=== PATIENT | male | born 1960 | race Caucasian/White ===

== ENCOUNTER 2018-10-07 01:22 | Outpatient (RCR) | payer OTHER, SELFPAY | END 2018-10-07 23:59 | disposition home or self-care (01) | LOC: INF 01:22 | PROVIDERS: Visit Provider Nurse Practitioner Adult Health | DX: R69 Illness, unspecified (principal) ==

== ENCOUNTER 2018-10-07 06:47 | Outpatient (CLI) | payer OTHER, SELFPAY ==
[2018-10-07 07:22] LABS: Absolute Basophil Count 0.06 k/cumm (0.0-0.2); Absolute Eosinophil Count 0.19 k/cumm (0.0-0.7); Absolute Lymphocyte Count 0.75 k/cumm (1.2-3.4); Absolute Monocyte Count 0.58 k/cumm (0.11-0.7); Absolute Neutrophil Count 3.54 k/cumm (1.2-6.7); Basophils % 1.2; Eosinophils % 3.7; HCT 42.5 % (40.0-50.0); HGB 14.5 g/dL (13.5-17.5); Lymphocytes % 14.6; Mean Corp. HGB Concentration 34.1 g/dL (32.0-36.0); Mean Corpuscular Hemoglobin 31.5 pg (27.0-33.0); Mean Corpuscular Volume 92.4 fL (80-95); Mean Platelet Volume 9.4 fL (8.0-11.0); Monocytes % 11.3; Neutrophils % 69.2; Platelet Count 205 x1000/uL (130-400); RBC Distribution Width 12.2 % (11.8-14.1); White Blood Cell Count 5.12 k/cumm (4.4-10.8)
[2018-10-07 07:33] LABS: ALT 16 U/L (12-78); AST 16 U/L (15-37); Albumin 3.4 g/dL (3.4-5.0); Alkaline Phosphatase 67 U/L (46-116); Anion Gap 7.2 mmol/L (3-11); BUN 15 mg/dL (7-18); Bilirubin, Total 0.3 mg/dL (0.2-1.0); CO2 29.8 mmol/L (21.0-32.0); CREATININE 0.84 mg/dL (0.70-1.30); Calcium 9.2 mg/dL (8.5-10.1); Chloride 102 mmol/L (98-107); Glucose 100 mg/dL (70-100); Potassium 4.1 mmol/L (3.5-5.1); Sodium 139 mmol/L (136-145); Total Protein 7.3 g/dL (6.4-8.2)
== END 2018-10-07 07:07 ==
PROVIDERS: PCP Neuromusculoskeletal Medicine & OMM; Visit Provider Nurse Practitioner Adult Health
DX: C77.0 Secondary and unspecified malignant neoplasm of lymph nodes of head, face and neck (principal)
CPT/HCPCS: 36415; 80053; 85025

== ENCOUNTER 2018-11-01 00:54 | Outpatient (RCR) | payer OTHER, SELFPAY ==
[2018-10-11] MEDS: Normal Saline Flush 10 ML SYR IVP (10:36)
[2018-10-11] MEDS: Heparin 500 UNITS/5 ML SYRINGE IV (10:37)
[2018-10-11 10:44] LABS: Abs Immature Grans 0.01 k/cumm (0.0-0.09); Absolute Basophil Count 0.03 k/cumm (0.0-0.2); Absolute Eosinophil Count 0.08 k/cumm (0.0-0.7); Absolute Lymphocyte Count 1.24 k/cumm (1.2-3.4); Absolute Monocyte Count 1.01 k/cumm (0.11-0.7); Absolute Neutrophil Count 4.63 k/cumm (1.2-6.7); Basophils % 0.4; Eosinophils % 1.1; HGB 14.4 g/dL (13.5-17.5); Immature Grans % 0.1; Lymphocytes % 17.7; Mean Corp. HGB Concentration 34.3 g/dL (32.0-36.0); Mean Corpuscular Hemoglobin 31.3 pg (27.0-33.0); Mean Corpuscular Volume 91.3 fL (80-95); Mean Platelet Volume 9.8 fL (8.0-11.0); Monocytes % 14.4; Neutrophils % 66.3; Platelet Count 252 x1000/uL (130-400); RBC Distribution Width 11.8 % (11.8-14.1)
[2018-10-11 10:52] LABS: ALT 16 U/L (12-78); AST 12 U/L (15-37); Albumin 3.6 g/dL (3.4-5.0); Alkaline Phosphatase 67 U/L (46-116); Anion Gap 6.1 mmol/L (3-11); BUN 22 mg/dL (7-18); Bilirubin, Total 0.3 mg/dL (0.2-1.0); CO2 31.9 mmol/L (21.0-32.0); CREATININE 0.93 mg/dL (0.70-1.30); Calcium 9.1 mg/dL (8.5-10.1); Chloride 100 mmol/L (98-107); Glucose 100 mg/dL (70-100); Magnesium 1.9 mg/dL (1.8-2.4); Potassium 3.9 mmol/L (3.5-5.1); Sodium 138 mmol/L (136-145); Total Protein 7.6 g/dL (6.4-8.2)
[2018-10-18] MEDS: Heparin 500 UNITS/5 ML SYRINGE IV (10:54)
[2018-10-18] MEDS: Normal Saline Flush 10 ML SYR IVP (10:54)
[2018-10-18 10:58] LABS: Abs Immature Grans 0.01 k/cumm (0.0-0.09); Absolute Basophil Count 0.01 k/cumm (0.0-0.2); Absolute Eosinophil Count 0.05 k/cumm (0.0-0.7); Absolute Lymphocyte Count 0.85 k/cumm (1.2-3.4); Absolute Monocyte Count 0.65 k/cumm (0.11-0.7); Absolute Neutrophil Count 5.19 k/cumm (1.2-6.7); Basophils % 0.1; Eosinophils % 0.7; HGB 13.7 g/dL (13.5-17.5); Immature Grans % 0.1; Lymphocytes % 12.6; Mean Corp. HGB Concentration 34.3 g/dL (32.0-36.0); Mean Corpuscular Hemoglobin 31.6 pg (27.0-33.0); Mean Corpuscular Volume 92.2 fL (80-95); Mean Platelet Volume 9.8 fL (8.0-11.0); Monocytes % 9.6; Neutrophils % 76.9; Platelet Count 227 x1000/uL (130-400); RBC 4.34 m/cumm (4.50-6.00); RBC Distribution Width 11.9 % (11.8-14.1); White Blood Cell Count 6.76 k/cumm (4.4-10.8)
[2018-10-18 11:12] LABS: ALT 32 U/L (12-78); AST 16 U/L (15-37); Albumin 3.4 g/dL (3.4-5.0); Alkaline Phosphatase 70 U/L (46-116); Anion Gap 8.7 mmol/L (3-11); BUN 20 mg/dL (7-18); Bilirubin, Total 0.2 mg/dL (0.2-1.0); CO2 30.3 mmol/L (21.0-32.0); CREATININE 0.89 mg/dL (0.70-1.30); Calcium 9.3 mg/dL (8.5-10.1); Chloride 101 mmol/L (98-107); Glucose 117 mg/dL (70-100); Potassium 3.6 mmol/L (3.5-5.1); Sodium 140 mmol/L (136-145); Total Protein 7.4 g/dL (6.4-8.2)
[2018-10-21 11:27] LABS: Magnesium 1.7 mg/dL (1.8-2.4)
[2018-10-25] MEDS: Heparin 500 UNITS/5 ML SYRINGE IV (12:43)
[2018-10-25] MEDS: Normal Saline Flush 10 ML SYR IVP (12:43)
[2018-10-25 13:00] LABS: Absolute Basophil Count 0.01 k/cumm (0.0-0.2); Absolute Eosinophil Count 0.03 k/cumm (0.0-0.7); Absolute Lymphocyte Count 0.55 k/cumm (1.2-3.4); Absolute Monocyte Count 0.67 k/cumm (0.11-0.7); Absolute Neutrophil Count 3.58 k/cumm (1.2-6.7); Basophils % 0.2; Eosinophils % 0.6; HCT 36.4 % (40.0-50.0); HGB 12.6 g/dL (13.5-17.5); Lymphocytes % 11.4; Mean Corp. HGB Concentration 34.6 g/dL (32.0-36.0); Mean Corpuscular Hemoglobin 31.8 pg (27.0-33.0); Mean Corpuscular Volume 91.9 fL (80-95); Mean Platelet Volume 9.3 fL (8.0-11.0); Monocytes % 13.8; Platelet Count 241 x1000/uL (130-400); RBC 3.96 m/cumm (4.50-6.00); RBC Distribution Width 11.9 % (11.8-14.1); White Blood Cell Count 4.84 k/cumm (4.4-10.8)
[2018-10-25 13:09] LABS: ALT 25 U/L (12-78); AST 18 U/L (15-37); Albumin 3.2 g/dL (3.4-5.0); Alkaline Phosphatase 70 U/L (46-116); Anion Gap 6.9 mmol/L (3-11); BUN 23 mg/dL (7-18); Bilirubin, Total 0.3 mg/dL (0.2-1.0); CO2 32.1 mmol/L (21.0-32.0); CREATININE 0.85 mg/dL (0.70-1.30); Calcium 9.4 mg/dL (8.5-10.1); Chloride 100 mmol/L (98-107); Glucose 92 mg/dL (70-100); Magnesium 1.9 mg/dL (1.8-2.4); Sodium 139 mmol/L (136-145); Total Protein 7.4 g/dL (6.4-8.2)
[2018-11-01 12:31] LABS: Abs Immature Grans 0.01 k/cumm (0.0-0.09); Absolute Basophil Count 0.02 k/cumm (0.0-0.2); Absolute Eosinophil Count 0.04 k/cumm (0.0-0.7); Absolute Lymphocyte Count 0.51 k/cumm (1.2-3.4); Absolute Monocyte Count 0.47 k/cumm (0.11-0.7); Basophils % 0.5; Eosinophils % 0.9; HCT 34.6 % (40.0-50.0); HGB 12.1 g/dL (13.5-17.5); Immature Grans % 0.2; Lymphocytes % 11.7; Mean Corpuscular Hemoglobin 31.9 pg (27.0-33.0); Mean Corpuscular Volume 91.3 fL (80-95); Mean Platelet Volume 9.3 fL (8.0-11.0); Monocytes % 10.8; Neutrophils % 75.9; Platelet Count 212 x1000/uL (130-400); RBC 3.79 m/cumm (4.50-6.00); RBC Distribution Width 12.2 % (11.8-14.1); White Blood Cell Count 4.35 k/cumm (4.4-10.8)
[2018-11-01 12:50] LABS: ALT 29 U/L (12-78); AST 15 U/L (15-37); Albumin 3.2 g/dL (3.4-5.0); Alkaline Phosphatase 79 U/L (46-116); Anion Gap 9.6 mmol/L (3-11); BUN 28 mg/dL (7-18); Bilirubin, Total 0.2 mg/dL (0.2-1.0); CO2 29.4 mmol/L (21.0-32.0); CREATININE 0.91 mg/dL (0.70-1.30); Calcium 9.1 mg/dL (8.5-10.1); Chloride 99 mmol/L (98-107); Glucose 89 mg/dL (70-100); Potassium 4.5 mmol/L (3.5-5.1); Sodium 138 mmol/L (136-145); Total Protein 7.4 g/dL (6.4-8.2)
[2018-11-01] MEDS: Normal Saline Flush 10 ML SYR IVP (13:18)
[2018-11-04 09:24] LABS: Magnesium 1.7 mg/dL (1.8-2.4)
== END 2018-11-07 23:59 | disposition home or self-care (01) ==
LOC: INF 00:54
PROVIDERS: PCP Neuromusculoskeletal Medicine & OMM; Visit Provider Nurse Practitioner Adult Health
DX: C77.0 Secondary and unspecified malignant neoplasm of lymph nodes of head, face and neck (principal); Z45.2 Encounter for adjustment and management of vascular access device
CPT/HCPCS: 36591; 80053; 83735; 85025

== ENCOUNTER 2018-11-18 11:09 | Outpatient (CLI) | payer OTHER, SELFPAY ==
[2018-11-18 11:27] LABS: Abs Immature Grans 0.01 k/cumm (0.0-0.09); Absolute Basophil Count 0.01 k/cumm (0.0-0.2); Absolute Eosinophil Count 0.03 k/cumm (0.0-0.7); Absolute Lymphocyte Count 0.22 k/cumm (1.2-3.4); Absolute Monocyte Count 0.28 k/cumm (0.11-0.7); Absolute Neutrophil Count 2.35 k/cumm (1.2-6.7); Basophils % 0.3; HCT 29.6 % (40.0-50.0); HGB 10.1 g/dL (13.5-17.5); Immature Grans % 0.3; Lymphocytes % 7.6; Mean Corp. HGB Concentration 34.1 g/dL (32.0-36.0); Mean Corpuscular Hemoglobin 31.5 pg (27.0-33.0); Mean Corpuscular Volume 92.2 fL (80-95); Monocytes % 9.7; Neutrophils % 81.1; Platelet Count 149 x1000/uL (130-400); RBC 3.21 m/cumm (4.50-6.00); RBC Distribution Width 12.6 % (11.8-14.1)
[2018-11-18 11:38] LABS: Bilirubin Negative (Negative); Blood Negative (Negative); Clarity Clear; Glucose Negative (Negative); Ketones Negative (Negative); Leukocyte Esterase Negative (Negative); Nitrite Negative (Negative); Specific Gravity 1.025 (1.005-1.025); Urobilinogen 0.2 EU/dL (Up TO 0.2)
[2018-11-18 11:39] LABS: ALT 20 U/L (12-78); AST 12 U/L (15-37); Albumin 2.9 g/dL (3.4-5.0); Alkaline Phosphatase 77 U/L (46-116); Anion Gap 7.4 mmol/L (3-11); BUN 24 mg/dL (7-18); Bilirubin, Total 0.2 mg/dL (0.2-1.0); CO2 29.6 mmol/L (21.0-32.0); CREATININE 0.99 mg/dL (0.70-1.30); Calcium 9.1 mg/dL (8.5-10.1); Chloride 100 mmol/L (98-107); Glucose 116 mg/dL (70-100); Magnesium 1.4 mg/dL (1.8-2.4); Potassium 4.1 mmol/L (3.5-5.1); Sodium 137 mmol/L (136-145); Total Protein 7.3 g/dL (6.4-8.2)
[2018-11-18 11:49] LABS: Bacteria Rare HPF (Negative); C & S Indicated? No; Casts 0-2 Hyaline LPF (Negative); Crystals Negative HPF (Negative); Epithelial Cells Rare HPF (Negative); Mucus Moderate (Negative); RBC 0-2 (0-2); WBC 0-2 HPF (0-5)
[2018-11-18 11:50] LABS: Other Cells Negative (Negative)
== END 2018-11-18 11:29 ==
PROVIDERS: PCP Neuromusculoskeletal Medicine & OMM; Visit Provider Nurse Practitioner Adult Health
DX: C77.0 Secondary and unspecified malignant neoplasm of lymph nodes of head, face and neck (principal)
CPT/HCPCS: 80053; 81003; 81015; 83735; 85025

== ENCOUNTER 2018-11-18 12:12 | Observation (INO) | payer OTHER, SELFPAY ==
[2018-11-18] VITALS (8 sets, daily range): BP systolic 106–142; BP diastolic 63–83; PULSE 99–120; RESP 16–20; TEMP 36.7–37.2; O2SAT 94–98
--- NOTE | 2018-11-18 12:35 | W.ED.GENAD ---
Discharge Plan Disposition Patient Disposition: [facility] INPATIENT Condition: Stable Discharge Details Chief Complaint: Nk/Back Pain Clinical Impression: Pulmonary embolism on right Reason For Visit: ACUTE PE Admit Date/Time: 11/18/18 15:33 Admit Provider: Fernando Zazueta Attending Provider: Fernando Zazueta Primary Care Provider: Troy Castorena ED Provider: Donta Whaley Discharge Data Discharge Date/Time-TO BE ENTERED AT DEPARTURE: 11/18/18 16:34 Medical Decision Making 58-year-old male presents on referral from [facility] where he is undergoing radiation and chemotherapy for head and neck cancer. He states that last night he developed fairly abrupt onset of right flank pain that is worse with coughing, has been constant and severe, minimally improved with home oxycodone. At the cancer center he was given 1 L of fluid and 1.25 g of magnesium. Labs were obtained. Patient's labs from 10:00 this morning show white count of 2.9, hematocrit 29, platelets 149, chemistries with unremarkable electrolytes, BUN 24, creatinine 0.9. AST and ALT unremarkable. Urinalysis shows specific gravity of 1.025, negative for blood negative nitrites, negative leuk esterase. He is high risk for pneumonia as well as PE given his history of carcinoma, consideration also of ureteral colic. Patient referred for CT scan of the chest and abdomen/pelvis. He has a right lower lobe pulmonary embolism. Screening EKG obtained which reveals a sinus tachycardia with narrow QRS and no ST segment elevation. Case discussed with Dr Zazueta and patient to be admitted. Lab Data Lab results reviewed: Yes I reviewed the patient's lab results. ECG Data Attestation: I personally reviewed and interpreted this ECG (s) as follows: Interpretation: sinus tachycardia with narrow QRS and no ST segment elevation HPI General Mode of arrival: ambulatory. Date/Time Provider Initiated Documentation: 11/18/18 12:14. Limitations to Documentation: no limitations. Information obtained by: patient. History of Present Illness described as moderate, Quality is described as dull and constant, and is localized to the chest. Patient flank. Patient started experiencing this hour(s) and it has been constant. Rest improves symptom(s), Other factors that worsen symptoms (cough) . Patient notes no other symptoms.. Related Data Home Medications Medication Instructions Recorded Confirmed lorazepam 1 mg PO PRN PRN 11/18/18 11/18/18 oxycodone 5 ml PO PRN PRN 11/18/18 11/18/18 Allergies Allergy/AdvReac Type Severity Reaction Status Date / Time Penicillins Allergy Unverified 11/18/18 12:25 General Stated Complaint: Nk/Back Pain AMMON: 2 Review of Systems Review of Systems Ongoing dry mouth due to radiation, no fever, no rash. 8 systems reviewed and otherwise neg PFSH Medical History History of gastrostomy tube placement (Acute) Tobacco abuse (Acute) Tongue cancer (Acute) Social History Smoking and Tabacco status: Former Tobacco Use Exam Narrative Exam Narrative: GEN: awake, alert, oriented 3. Pleasant, well groomed, interactive. HEAD: Normocephalic, atraumatic ENT: Mucous membranes dry, External ear exam unremarkable EYES: PERRL, EOMI NECK: Full ROM, no PADMINI, no menigismus CHEST/RESP: Left upper chest wall port with access in place right infero-posterior thoracic tenderness, clear to auscultation bilateral, no wheeze/rhonchi/rales. No rash CARDIOVASCULAR: regular, tachycardic, no murmur, rub herson. 2+ Rad pulse bilateral ABDOMEN: Soft, nontender, no mass. +Bowel sounds. Left lower abdomen G-tube, nontender, clean dry and intact EXT: Full ROM, no edema, no rash Neuro: Grossly normal neurologic exam, conversant, interactive. Psych: Speech fluent, thoughts congruent, affect normal Course Vital Signs Temperature 37.1 C 11/18/18 12:22 Pulse 120 H 11/18/18 12:22 Respiratory Rate 20 11/18/18 12:22 Blood Pressure 110/83 11/18/18 12:22 Pulse Oximetry 95 11/18/18 12:22 Temperature 37.1 C 11/18/18 12:22 Temperature Source Temporal Artery Scan 11/18/18 12:22 Pulse 120 H 11/18/18 12:22 Respiratory Rate 20 11/18/18 12:22 Respiratory Effort Non-Labored 11/18/18 12:22 Blood Pressure 110/83 11/18/18 12:22 Pulse Oximetry 95 11/18/18 12:22 Oxygen Delivery Method Room Air 11/18/18 12:22 Oxygen Flow Rate 0 11/18/18 12:22 Pain Level 10 11/18/18 12:22
--- NOTE | 2018-11-18 12:39 | DI.CT_ITS ---
SYMPTOMS/DIAGNOSIS: RIGHT FLANK/POSTERIOR THORACIC PAIN, COUGH, H/O CA PE CT: CT angiography was performed with multi slice acquisition and multi planar and 3D reconstruction. There is a filling defect seen in branches of the pulmonary artery to the right lower lobe consistent with pulmonary embolus. The thoracic aorta is of normal caliber. No aneurysmal dilatation or dissection is seen. The heart size is within normal limits. No evidence of right ventricular dysfunction is seen. No significant pericardial effusion is seen. No significant thoracic adenopathy is identified. The lungs show dependent infiltrates bilaterally. These may represent atelectasis. Pneumonia cannot be excluded. Moderate emphysematous changes are present in the lungs. The tracheobronchial tree is unremarkable. There is an indwelling central venous catheter in position. No pulmonary nodules are appreciated. Degenerative changes are seen in the spine. IMPRESSION: Pulmonary emboli involving the right lower lobe. The findings were discussed with the Emergency Department on the date of the examination.
--- NOTE | 2018-11-18 12:39 | ED.GENADUL_ITS ---
Discharge Plan Disposition Patient Disposition: [facility] INPATIENT Condition: Stable Discharge Details Chief Complaint: Nk/Back Pain Clinical Impression: Pulmonary embolism on right Reason For Visit: ACUTE PE Admit Date/Time: 11/18/18 15:33 Admit Provider: Fernando Zazueta Attending Provider: Fernando Zazueta Primary Care Provider: Troy Castorena ED Provider: Donta Whaley Discharge Data Discharge Date/Time-TO BE ENTERED AT DEPARTURE: 11/18/18 16:34 Medical Decision Making 58-year-old male presents on referral from [facility] where he is undergoing radiation and chemotherapy for head and neck cancer. He states that last night he developed fairly abrupt onset of right flank pain that is worse with coughing, has been constant and severe, minimally improved with home oxycodone. At the cancer center he was given 1 L of fluid and 1.25 g of magnesium. Labs were obtained. Patient's labs from 10:00 this morning show white count of 2.9, hematocrit 29, platelets 149, chemistries with unremarkable electrolytes, BUN 24, creatinine 0.9. AST and ALT unremarkable. Urinalysis shows specific gravity of 1.025, negative for blood negative nitrites, negative leuk esterase. He is high risk for pneumonia as well as PE given his history of carcinoma, consideration also of ureteral colic. Patient referred for CT scan of the chest and abdomen/pelvis. He has a right lower lobe pulmonary embolism. Screening EKG obtained which reveals a sinus tachycardia with narrow QRS and no ST segment elevation. Case discussed with Dr Zazueta and patient to be admitted. Lab Data Lab results reviewed: Yes I reviewed the patient's lab results. ECG Data Attestation: I personally reviewed and interpreted this ECG (s) as follows: Interpretation: sinus tachycardia with narrow QRS and no ST segment elevation HPI General Mode of arrival: ambulatory . Date/Time Provider Initiated Documentation: 11/18/18 12:14 . Limitations to Documentation: no limitations . Information obtained by: patient . History of Present Illness described as moderate, Quality is described as dull and constant, and is localized to the chest. Patient flank. Patient started experiencing this hour(s) and it has been constant. Rest improves symptom(s), Other factors that worsen symptoms (cough) . Patient notes no other symptoms.. Related Data Home Medications Medication Instructions Recorded Confirmed lorazepam 1 mg PO PRN PRN 11/18/18 11/18/18 oxycodone 5 ml PO PRN PRN 11/18/18 11/18/18 Allergies Allergy/AdvReac Type Severity Reaction Status Date / Time Penicillins Allergy Unverified 11/18/18 12:25 General Stated Complaint: Nk/Back Pain AMMON: 2 Review of Systems Review of Systems Ongoing dry mouth due to radiation, no fever, no rash. 8 systems reviewed and otherwise neg PFSH Medical History History of gastrostomy tube placement (Acute) Tobacco abuse (Acute) Tongue cancer (Acute) Social History Smoking and Tabacco status: Former Tobacco Use Exam Narrative Exam Narrative: GEN: awake, alert, oriented 3. Pleasant, well groomed, interactive. HEAD: Normocephalic, atraumatic ENT: Mucous membranes dry, External ear exam unremarkable EYES: PERRL, EOMI NECK: Full ROM, no PADMINI, no menigismus CHEST/RESP: Left upper chest wall port with access in place right infero- posterior thoracic tenderness, clear to auscultation bilateral, no wheeze/rhonchi/rales. No rash CARDIOVASCULAR: regular, tachycardic, no murmur, rub herson. 2+ Rad pulse bilateral ABDOMEN: Soft, nontender, no mass. +Bowel sounds. Left lower abdomen G-tube, nontender, clean dry and intact EXT: Full ROM, no edema, no rash Neuro: Grossly normal neurologic exam, conversant, interactive. Psych: Speech fluent, thoughts congruent, affect normal Course Vital Signs Temperature 37.1 C 11/18/18 12:22 Pulse 120 H 11/18/18 12:22 Respiratory Rate 20 11/18/18 12:22 Blood Pressure 110/83 11/18/18 12:22 Pulse Oximetry 95 11/18/18 12:22 Temperature 37.1 C 11/18/18 12:22 Temperature Source Temporal Artery Scan 11/18/18 12:22 Pulse 120 H 11/18/18 12:22 Respiratory Rate 20 11/18/18 12:22 Respiratory Effort Non-Labored 11/18/18 12:22 Blood Pressure 110/83 11/18/18 12:22 Pulse Oximetry 95 11/18/18 12:22 Oxygen Delivery Method Room Air 11/18/18 12:22 Oxygen Flow Rate 0 11/18/18 12:22 Pain Level 10 11/18/18 12:22
[2018-11-18] MEDS: HYDROmorphone 2 MG/ML VIAL 1 MG IVP (12:56)
--- NOTE | 2018-11-18 12:57 | DI.CT_ITS ---
SYMPTOMS/DIAGNOSIS: RIGHT FLANK PAIN, RIGHT UPPER QUADRANT CT SCAN OF THE ABDOMEN AND PELVIS: CT scan of the abdomen and pelvis was performed according to the renal colic protocol. There are no priors for comparison. There is no evidence of nephrolithiasis, ureterolithiasis or hydronephrosis. There are bilateral hypodense lesions seen arising from the renal cortices, likely reflecting cysts. They are indeterminate on this noncontrast examination. There is a gastrostomy tube in place. The unenhanced visualized portions of the liver, spleen, pancreas, gallbladder, bile ducts and adrenal glands are unremarkable. The abdominal aorta is of normal caliber. No significant abdominal or pelvic adenopathy, ascites or pneumoperitoneum is present. There is diverticulosis seen in the sigmoid colon, but no evidence of acute diverticulitis. The bowel shows no evidence of obstruction or inflammation. No findings to suggest an acute appendicitis are present. Multilevel degenerative changes are present throughout the lower thoracic and lumbar spine. IMPRESSION: 1. No evidence of nephrolithiasis or hydronephrosis. 2. No evidence of an acute abdomen. 3. Incidental findings in the abdomen and pelvis as described above. These findings were discussed with the Emergency Department on the date of the examination.
[2018-11-18] MEDS: Omnipaque 350 MG/ML 100 ML BTL IV (14:58)
--- NOTE | 2018-11-18 16:20 | W.PM.HP.N ---
Date of service: 11/18/18 Time of Service: 16:29 Assessment and Plan (1) Pulmonary embolism: Start date: 11/18/18 Start time: 16:22 Current visit: Yes Status: Acute Pulmonary embolism evidenced by CTA in Right lower lobe. Started enoxaprin dosing 1.5 mg/kg subcu q24 hours 146.2 mg. Morphine for pain management 2 mg every 3 hours. (2) G tube feedings: Start date: 11/18/18 Start time: 16:23 Current visit: Yes Status: Acute Swallowing difficulty due to radiation to neck. Can not swallow anything but thin liquids. 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 (5) Difficulty swallowing: Start date: 11/18/18 Start time: 16:28 Current visit: Yes Status: Acute receiving chemo and radiation to neck and head. Unable to swallow anything but thin liquids at this time. History of Present Illness Chief Complaint: Pulmonary Emoblism Narrative: Mr. Hatfield is a 58 y.o male with a history of Radiation to his head and Neck for cancer. He had a three days history of profuse posterior thorax pain that would bring tears to his eyes. He endorses coughing last night that has been constant and severe. Mr. Hatfield has a history of tobacco use, and is currently receiving Chemo and Radiation for neck cancer when he went to the cancer center this am for his last chemo treatment and told them his symptoms. The cancer center gave him a liter of fluid and 1.25 g of magnesium. He was sent to [facility] emergency department for further evaluation. In the emergency department he had a CTA that showed a right lower lobe pulmonary embolism. We have been asked to admit this patient for further evaluation and observation. He will be started on enoxaparin 1.5 mg /kg every 24 hours. He is not hypotensive or tachycardic. Denies SOB. He does c/o posterior thorax pain with deep inspiration, he usually takes oxycodone at home, Morphine 2 mg is ordered for pain. Ultrasound to r/o DVT and observation over night. Review of Systems Review of Systems All systems reviewed & are unremarkable except as noted in HPI and below Constitutional Reports system reviewed and no additional complaints, except as docu Eyes Reports system reviewed and no additional complaints, except as docu ENT Reports throat swelling Comments: dysphagia Cardiovascular Reports system reviewed and no additional complaints, except as docu Respiratory Reports system reviewed and no additional complaints, except as docu Gastrointestinal Reports system reviewed and no additional complaints, except as docu Genitourinary Reports system reviewed and no additional complaints, except as docu Musculoskeletal Reports system reviewed and no additional complaints, except as docu Neurologic Reports system reviewed and no additional complaints, except as docu Endocrine Reports system reviewed and no additional complaints, except as docu Hematologic/Lymphatic Reports as per HPI Allergic/Immunologic Reports throat swelling PFSH Medical History History of gastrostomy tube placement (Acute) Tobacco abuse (Acute) Tongue cancer (Acute) Social History Smoking and Tabacco status: Former Tobacco Use Meds Home Medications Medication Instructions Recorded Confirmed Type lorazepam 1 mg PO PRN PRN 11/18/18 11/18/18 History oxycodone 5 ml PO PRN PRN 11/18/18 11/18/18 History Allergies Allergy/AdvReac Type Severity Reaction Status Date / Time Penicillins Allergy Unverified 11/18/18 12:25 Exam Narrative Exam Narrative: Pleasant man sitting up in a stretcher, calm Const General: cooperative and healthy appearing [facility] Head: normal to inspection Eyes General: appearance normal, both eyes and all related structures Neck Neck: no lymphadenopathy Other: erythemic from radiation Chest Chest: normal inspection of the chest Resp Effort & Inspection: normal respiratory effort Auscultation: clear to auscultation bilaterally Cardio Jugular venous pressure: no JVD Rhythm: regular rhythm Heart Sounds: S1 normal and S2 normal GI Inspection: normal to inspection Other: G tube placed Skin General skin exam: no rashes or lesions noted Neuro General: alert, awake and oriented x3 Extrem General: normal to inspection and full ROM Results Last Vital Signs Temp 37.2 C 11/18/18 15:06 Pulse 112 H 11/18/18 15:06 Resp 18 11/18/18 15:06 BP 111/76 11/18/18 15:06 Pulse Ox 94 L 11/18/18 15:06
--- NOTE | 2018-11-18 16:50 | DI.US_ITS ---
SYMPTOM/DIAGNOSIS: PULMONARY EMBOLISM BILATERAL LOWER EXTREMITY ULTRASOUND: The deep veins of the lower extremities show normal compression, augmentation and color flow. No evidence of a deep venous thrombus is seen in either lower extremity. The saphenofemoral junctions are patent without thrombus bilaterally. The soft tissues are unremarkable. IMPRESSION: No evidence of a deep venous thrombus in either lower extremity.
--- NOTE | 2018-11-18 17:14 | DI.VRAD_ITS ---
EXAM: US Duplex Bilateral Lower Extremity Veins EXAM DATE/TIME: 11/18/2018 4:20 PM CLINICAL HISTORY: 58 years old, male; Signs and symptoms; Other: Pe; ? Dvt TECHNIQUE: Real-time duplex ultrasound of the Bilateral Lower Extremities with 2-D waite scale, color Doppler flow and spectral waveform analysis. Complete exam focused on the bilateral lower extremity veins. COMPARISON: No relevant prior studies available. FINDINGS: Right deep veins: Unremarkable. The common femoral, femoral, proximal profunda femoral and popliteal veins are patent without thrombus. Normal Doppler waveforms. Normal compressibility and/or augmentation response. Right superficial veins: Saphenofemoral junction is patent without thrombus. Left deep veins: Unremarkable. The common femoral, femoral, proximal profunda femoral and popliteal veins are patent without thrombus. Normal Doppler waveforms. Normal compressibility and/or augmentation response. Left superficial veins: Saphenofemoral junction is patent without thrombus. Soft tissues: Unremarkable. IMPRESSION: No acute findings. No evidence of deep vein thrombosis. Dictated and Authenticated by: Michelle Baron MD. Ordering:JESSICA Schaffer MD
[2018-11-18] MEDS: Normal Saline Flush 10 ML SYR IVP (18:57)
[2018-11-18] MEDS: Ondansetron 4 MG/2 ML VIAL IVP (20:33)
[2018-11-18] MEDS: Normal Saline Flush 10 ML SYR 20 ML IVP (20:34)
[2018-11-19 03:48] VITALS: BP 102/73; PULSE 94; RESP 16; TEMP 37.1; O2SAT 96
--- NOTE | 2018-11-19 04:14 | NUR.NOTE ---
evening shift nurse tried to get pt's tube feeding to flow via gravity but it would not would flow. pt refused to use syringe or pump. coby Wade notified.
[2018-11-19 06:59] VITALS: PULSE 93
[2018-11-19 07:11] LABS: HCT 27.2 % (40.0-50.0); HGB 9.1 g/dL (13.5-17.5); Mean Corp. HGB Concentration 33.5 g/dL (32.0-36.0); Mean Corpuscular Volume 92.5 fL (80-95); Mean Platelet Volume 9.2 fL (8.0-11.0); Platelet Count 136 x1000/uL (130-400); RBC 2.94 m/cumm (4.50-6.00); RBC Distribution Width 12.7 % (11.8-14.1); White Blood Cell Count 2.27 k/cumm (4.4-10.8)
[2018-11-19 07:25] VITALS: BP 108/81; PULSE 97; RESP 18; TEMP 36.6; O2SAT 96
[2018-11-19 07:26] LABS: Anion Gap 7.6 mmol/L (3-11); BUN 18 mg/dL (7-18); CO2 29.4 mmol/L (21.0-32.0); CREATININE 0.92 mg/dL (0.70-1.30); Chloride 101 mmol/L (98-107); Glucose 105 mg/dL (70-100); Magnesium 1.5 mg/dL (1.8-2.4); Potassium 4.2 mmol/L (3.5-5.1); Sodium 138 mmol/L (136-145)
[2018-11-19 07:27] LABS: Prothrombin Time 10.1 sec (9.3-11.0)
[2018-11-19 09:30] VITALS: O2SAT 96
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
[2018-11-19] MEDS: MAGNESIUM SULFATE 2 GM/50 ML BAG IVPB (10:38)
[2018-11-19] MEDS: Normal Saline Flush 10 ML SYR 20 ML IVP (10:40)
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
[2018-11-19 11:25] VITALS: BP 102/78; PULSE 102; RESP 19; TEMP 37; O2SAT 96
--- NOTE | 2018-11-19 12:04 | DSE_ITS ---
Date of service: 11/19/18 Time of Service: 12:02 DS: Diagnosis Discharge Diagnosis (1) Pulmonary embolism: Status: Acute (2) G tube feedings: Status: Acute (3) DVT prophylaxis: Status: Acute (4) Squamous cell cancer of buccal mucosa: Status: Acute (5) Difficulty swallowing: Status: Acute Discharge Plan Disposition Condition: Stable Discharge Details Reason For Visit: ACUTE PE Admit Date/Time: 11/18/18 15:33 Admit Provider: Fernando Zazueta Attending Provider: Fernando Zazueta Primary Care Provider: Troy Castorena [facility] Hospital Course: Mr. Hatfield is a pleasant 58 year old man with a history of tobacco use and head and neck cancer for which he is currently undergoing chemotherapy and radiation. He presented to the [facility] for his chemo treatment yesterday and reported significant right flank pain. He was given IV fluids and magnesium and sent to the ED for further evaluation. He did not receive his chemotherapy or radiation yesterday. In the ED, he had a CTA that showed a right lower lobe pulmonary embolism. He had bilateral lower extremity ultrasound which did not show evidence of a DVT in either extremity. He was admitted to the [facility] floor for further observation and management. He was started on therapeutic Lovenox. He remained hemodynamically stable, he is not hypotensive or tachycardic. He is eager for discharge. He is not longer experiencing the right-sided pain that prompted his visit to the ED. He denies shortness of breath, coughing, wheezing, chest pain/pressure, palpitations. His blood counts are down today, however, he is 8 days post chemotherapy. He also received IV fluids yesterday. He is discharged home today with close follow up. Nursing is working with Mr. Hatfield and his on administering Lovenox at home. He require anticoagulation for 3-6 months. He will be discharged home with a 10 day supply of Lovenox and follow up with his PCP and the [facility]. He will be seen at the [facility] this afternoon. He will have labs drawn in 2 days to reassess his blood counts. He will follow up with his PCP as scheduled. Home Meds and New Rx's Prescriptions: New omeprazole 20 mg Capsule,Delayed Release(Dr/Ec) 20 mg PO DAILY@0730 30 Days Qty: 30 RF: 0 enoxaparin [Lovenox] 100 mg/mL syringe 100 mg SC Q12H Qty: 20 RF: 0 Continued oxycodone 5 mg/5 mL Solution 5 ml PO PRN PRNRF: 0 lorazepam 1 mg Tablet 1 mg PO PRN PRNRF: 0 Discharge Instructions Instructions: Enoxaparin (Injection), Pulmonary Embolism (DC) Additional Instructions: You will need to take lovenox two times daily. We have supplied you for 10 days. Your PCP will need to continue anticoagulation after that. You will need to have blood drawn in 2 days to recheck your blood counts. Follow up with [facility] as scheduled. Follow up with your PCP as scheduled. Take care! Stand Alone Forms: Nursing Discharge Form Referrals: Troy Castorena [Primary Care Provider] - 11/27/18 9:40 am Activity:: Activity as Tolerated Activity:: Activity as Tolerated Equipment/Supplies:: No Equipment Needed Diet:: As Tolerated Discharge Orders Other Ambulatory Orders: Complete Blood Count w/Diff (Routine) Timeframe: 2 Days Facility: [facility] - Location: Laboratory Outpatient Ordered By: Macey Díaz Exam Narrative Exam Narrative: General: appears comfortable, sitting up in bed, in NAD. HEENT: normocephalic, atraumatic, pupils equal and round, mucous membranes moist. Neck: supple, no JVD. Respiratory: respirations even and unlabored, wheezes noted throughout, no rales. Cardiovascular: heart has regular rate and rhythm, no murmur. GI: abdomen soft, nontender on palpation, no masses, normoactive BS throughout. Extremities: no clubbing, cyanosis, or edema, pedal pulses bilaterally. DS: Data Vitals/I&O Vitals and I&O: Vital Signs Temperature 36.6 C 11/19/18 07:25 Temperature Source Tympanic 11/19/18 07:25 Pulse 97 H 11/19/18 07:25 Pulse Rhythm Regular 11/19/18 00:02 Respiratory Rate 18 11/19/18 07:25 Respiratory Effort 11/19/18 00:02 Respiratory Depth Normal 11/19/18 00:02 Respiratory Pattern Normal 11/19/18 00:02 Blood Pressure 108/81 11/19/18 07:25 Pulse Oximetry 96 11/19/18 09:30 Oxygen Delivery Method Room Air 11/19/18 09:30 Oxygen Flow Rate 0 11/19/18 09:30 Pain Level 3 11/18/18 20:26 Comment 2009--telemetry reading --p to 150's 11/18/18 20:26 Intake & Output 11/18/18 11/19/18 11/19/18 23:59 11:59 23:59 Weight 97.522 kg Other: Comment pt gets up AD JAYJAY to void. Completed studies during hospitalization [Text1]: 11/18/18: PE CT: CT angiography was performed with multi slice acquisition and multi planar and 3D reconstruction. There is a filling defect seen in branches of the pulmonary artery to the right lower lobe consistent with pulmonary embolus. The thoracic aorta is of normal caliber. No aneurysmal dilatation or dissection is seen. The heart size is within normal limits. No evidence of right ventricular dysfunction is seen. No significant pericardial effusion is seen. No significant thoracic adenopathy is identified. The lungs show dependent infiltrates bilaterally. These may represent atelectasis. Pneumonia cannot be excluded. Moderate emphysematous changes are present in the lungs. The tracheobronchial tree is unremarkable. There is an indwelling central venous catheter in position. No pulmonary nodules are appreciated. Degenerative changes are seen in the spine. IMPRESSION: Pulmonary emboli involving the right lower lobe. CT SCAN OF THE ABDOMEN AND PELVIS: CT scan of the abdomen and pelvis was performed according to the renal colic protocol. There are no priors for comparison. There is no evidence of nephrolithiasis, ureterolithiasis or hydronephrosis. There are bilateral hypodense lesions seen arising from the renal cortices, likely reflecting cysts. They are indeterminate on this noncontrast examination. There is a gastrostomy tube in place. The unenhanced visualized portions of the liver, spleen, pancreas, gallbladder, bile ducts and adrenal glands are unremarkable. The abdominal aorta is of normal caliber. No significant abdominal or pelvic adenopathy, ascites or pneumoperitoneum is present. There is diverticulosis seen in the sigmoid colon, but no evidence of acute diverticulitis. The bowel shows no evidence of obstruction or inflammation. No findings to suggest an acute appendicitis are present. Multilevel degenerative changes are present throughout the lower thoracic and lumbar spine. IMPRESSION: 1. No evidence of nephrolithiasis or hydronephrosis. 2. No evidence of an acute abdomen. 3. Incidental findings in the abdomen and pelvis as described above. BILATERAL LOWER EXTREMITY ULTRASOUND: The deep veins of the lower extremities show normal compression, augmentation and color flow. No evidence of a deep venous thrombus is seen in either lower extremity. The saphenofemoral junctions are patent without thrombus bilaterally. The soft tissues are unremarkable. IMPRESSION: No evidence of a deep venous thrombus in either lower extremity. Labs on day of discharge: Labs from last 24 hours 11/19/18 11/19/18 11/19/18 06:30 06:30 06:30 WBC 2.27 L RBC 2.94 L Hgb 9.1 L Hct 27.2 L MCV 92.5 MCH 31.0 MCHC 33.5 RDW 12.7 Plt Count 136 MPV 9.2 PT 10.1 INR 1.0 Sodium 138 Potassium 4.2 Chloride 101 Carbon Dioxide 29.4 Anion Gap 7.6 BUN 18 D Creatinine 0.92 Estimated GFR/1.73 m2 >= 60.00 Glucose 105 H Calcium 9.0 Magnesium 1.5 L PFSH Medical History History of gastrostomy tube placement (Acute) Tobacco abuse (Acute) Tongue cancer (Acute) Family History Father Renal cancer Social History Smoking and Tabacco status: Former Tobacco Use
[2018-11-19 13:19] VITALS: PULSE 103
--- NOTE | 2018-11-19 15:10 | CHAPLAIN ---
Troy's was with him when I visited. He told me about being at [facility] and for chemo and radiation and then being transferred here yesterday. He is hoping to go home later today. Troy said he is missing his five dogs He was suppose to have his last chemo treatment yesterday and is not sure how the change in schedule affect his radiation treatment schedule. Troy was very pleasant, and easy going with the student nurses. 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
--- NOTE | 2018-11-19 16:40 | PDOC.CMDIS ---
LACE Index Scoring Tool - Questions: Length of Stay (in days): 2 Acuity (Admit via E.D.?): Yes Comorbidities: Any Tumor E.D. Visits: 1 - Answers: Total Score: 8 Risk of Readmission: Low Risk Care Management Discharge Reason for Hospitalization: Acute PE Discharge Plan: Troy will return home when ready per MD. He will follow up with his PCP, [facility], and plan of care as prescribed. He will transport via private vehicle with his , Jessy. Patient/Family Education Needs: Review discharge instructions, discuss Ask Me Three.
== END 2018-11-19 13:45 | disposition home or self-care (01) ==
LOC: ER 16:36 → MS 16:41 → ER 16:49 → MS 11-19 10:41
PROVIDERS: Nurse Practitioner Family; Admitting Provider Internal Medicine; Emergency Provider Emergency Medicine; PCP Neuromusculoskeletal Medicine & OMM; Visit Provider Internal Medicine
DX: I26.99 Other pulmonary embolism without acute cor pulmonale (principal); J98.11 Atelectasis; R13.10 Dysphagia, unspecified; Y84.2 Radiological procedure and radiotherapy as the cause of abnormal reaction of the patient, or of later complication, without mention of misadventure at the time of the procedure; C06.0 Malignant neoplasm of cheek mucosa; C76.0 Malignant neoplasm of head, face and neck; Z79.899 Other long term (current) drug therapy; Z93.1 Gastrostomy status; Z95.828 Presence of other vascular implants and grafts; Z87.891 Personal history of nicotine dependence; Z92.3 Personal history of irradiation; R07.81 Pleurodynia
CPT/HCPCS: 36591; 71275; 80048; 85027; 93005; 96374; 99223; 99239; 99285; 74176; 83735; 85610; 93010; 93970; 99217; 99220; G0378; J1650; J2405; J3490

== ENCOUNTER 2018-11-28 12:30 | Outpatient (RCR) | payer OTHER, SELFPAY ==
[2018-11-08] MEDS: Normal Saline Flush 10 ML SYR IVP (12:12)
[2018-11-08 12:14] LABS: Absolute Basophil Count 0.02 k/cumm (0.0-0.2); Absolute Eosinophil Count 0.03 k/cumm (0.0-0.7); Absolute Lymphocyte Count 0.29 k/cumm (1.2-3.4); Absolute Monocyte Count 0.32 k/cumm (0.11-0.7); Absolute Neutrophil Count 2.06 k/cumm (1.2-6.7); Basophils % 0.7; Eosinophils % 1.1; HCT 33.8 % (40.0-50.0); HGB 11.8 g/dL (13.5-17.5); Lymphocytes % 10.7; Mean Corp. HGB Concentration 34.9 g/dL (32.0-36.0); Mean Corpuscular Volume 91.6 fL (80-95); Mean Platelet Volume 8.7 fL (8.0-11.0); Monocytes % 11.8; Neutrophils % 75.7; Platelet Count 188 x1000/uL (130-400); RBC 3.69 m/cumm (4.50-6.00); RBC Distribution Width 12.5 % (11.8-14.1); White Blood Cell Count 2.72 k/cumm (4.4-10.8)
[2018-11-08 12:28] LABS: ALT 22 U/L (12-78); AST 15 U/L (15-37); Albumin 3.1 g/dL (3.4-5.0); Alkaline Phosphatase 83 U/L (46-116); Anion Gap 8.8 mmol/L (3-11); BUN 27 mg/dL (7-18); Bilirubin, Total 0.2 mg/dL (0.2-1.0); CO2 29.2 mmol/L (21.0-32.0); CREATININE 0.88 mg/dL (0.70-1.30); Calcium 9.2 mg/dL (8.5-10.1); Chloride 100 mmol/L (98-107); Glucose 83 mg/dL (70-100); Magnesium 1.6 mg/dL (1.8-2.4); Potassium 4.8 mmol/L (3.5-5.1); Sodium 138 mmol/L (136-145); Total Protein 7.6 g/dL (6.4-8.2)
[2018-11-15] MEDS: Normal Saline Flush 10 ML SYR IVP (12:01)
[2018-11-15 12:08] LABS: Absolute Basophil Count 0.01 k/cumm (0.0-0.2); Absolute Eosinophil Count 0.02 k/cumm (0.0-0.7); Absolute Lymphocyte Count 0.25 k/cumm (1.2-3.4); Absolute Monocyte Count 0.17 k/cumm (0.11-0.7); Absolute Neutrophil Count 1.31 k/cumm (1.2-6.7); Basophils % 0.6; Eosinophils % 1.1; HCT 30.6 % (40.0-50.0); HGB 10.6 g/dL (13.5-17.5); Lymphocytes % 14.2; Mean Corp. HGB Concentration 34.6 g/dL (32.0-36.0); Mean Corpuscular Hemoglobin 31.9 pg (27.0-33.0); Mean Corpuscular Volume 92.2 fL (80-95); Mean Platelet Volume 8.3 fL (8.0-11.0); Monocytes % 9.7; Neutrophils % 74.4; Platelet Count 155 x1000/uL (130-400); RBC 3.32 m/cumm (4.50-6.00); RBC Distribution Width 12.7 % (11.8-14.1)
[2018-11-15 12:22] LABS: ALT 25 U/L (12-78); AST 15 U/L (15-37); Alkaline Phosphatase 77 U/L (46-116); Anion Gap 5.1 mmol/L (3-11); BUN 24 mg/dL (7-18); Bilirubin, Total 0.1 mg/dL (0.2-1.0); CO2 29.9 mmol/L (21.0-32.0); CREATININE 0.84 mg/dL (0.70-1.30); Calcium 8.7 mg/dL (8.5-10.1); Chloride 101 mmol/L (98-107); Glucose 89 mg/dL (70-100); Magnesium 1.3 mg/dL (1.8-2.4); Potassium 4.5 mmol/L (3.5-5.1); Sodium 136 mmol/L (136-145); Total Protein 7.2 g/dL (6.4-8.2)
[2018-11-15 12:33] LABS: White Blood Cell Count 1.76 k/cumm (4.4-10.8)
[2018-11-15 12:34] LABS: Diff Comment Agrees w/ Instrument; RBC Morphology Normal
[2018-11-22] MEDS: Normal Saline Flush 10 ML SYR IVP (12:10)
[2018-11-22 12:30] LABS: Absolute Basophil Count 0.01 k/cumm (0.0-0.2); Absolute Eosinophil Count 0.04 k/cumm (0.0-0.7); Absolute Lymphocyte Count 0.25 k/cumm (1.2-3.4); Absolute Monocyte Count 0.23 k/cumm (0.11-0.7); Absolute Neutrophil Count 0.99 k/cumm (1.2-6.7); Basophils % 0.7; Eosinophils % 2.6; HCT 28.6 % (40.0-50.0); HGB 9.8 g/dL (13.5-17.5); Lymphocytes % 16.4; Mean Corp. HGB Concentration 34.3 g/dL (32.0-36.0); Mean Corpuscular Hemoglobin 31.8 pg (27.0-33.0); Mean Corpuscular Volume 92.9 fL (80-95); Mean Platelet Volume 8.7 fL (8.0-11.0); Monocytes % 15.1; Neutrophils % 65.2; Platelet Count 198 x1000/uL (130-400); RBC 3.08 m/cumm (4.50-6.00); RBC Distribution Width 13.2 % (11.8-14.1)
[2018-11-22 12:40] LABS: ALT 17 U/L (12-78); AST 15 U/L (15-37); Alkaline Phosphatase 71 U/L (46-116); Anion Gap 8.7 mmol/L (3-11); BUN 19 mg/dL (7-18); Bilirubin, Total 0.1 mg/dL (0.2-1.0); CO2 28.3 mmol/L (21.0-32.0); CREATININE 0.94 mg/dL (0.70-1.30); Calcium 8.8 mg/dL (8.5-10.1); Chloride 102 mmol/L (98-107); Glucose 87 mg/dL (70-100); Magnesium 1.5 mg/dL (1.8-2.4); Potassium 4.6 mmol/L (3.5-5.1); Sodium 139 mmol/L (136-145); Total Protein 7.3 g/dL (6.4-8.2)
[2018-11-22 12:54] LABS: White Blood Cell Count 1.52 k/cumm (4.4-10.8)
[2018-11-22 12:56] LABS: Diff Comment Diff Reviewed; Polychromasia Present
[2018-11-25] MEDS: Normal Saline Flush 10 ML SYR IVP (08:15)
[2018-11-25 08:31] LABS: Abs Immature Grans 0.01 k/cumm (0.0-0.09); Absolute Basophil Count 0.01 k/cumm (0.0-0.2); Absolute Eosinophil Count 0.02 k/cumm (0.0-0.7); Absolute Lymphocyte Count 0.23 k/cumm (1.2-3.4); Absolute Monocyte Count 0.26 k/cumm (0.11-0.7); Absolute Neutrophil Count 0.92 k/cumm (1.2-6.7); Basophils % 0.7; Eosinophils % 1.4; HCT 29.8 % (40.0-50.0); HGB 10.1 g/dL (13.5-17.5); Immature Grans % 0.7; Lymphocytes % 15.9; Mean Corp. HGB Concentration 33.9 g/dL (32.0-36.0); Mean Corpuscular Hemoglobin 31.6 pg (27.0-33.0); Mean Corpuscular Volume 93.1 fL (80-95); Mean Platelet Volume 8.4 fL (8.0-11.0); Monocytes % 17.9; Neutrophils % 63.4; Platelet Count 231 x1000/uL (130-400); RBC Distribution Width 13.8 % (11.8-14.1)
[2018-11-25 08:56] LABS: ALT 19 U/L (12-78); AST 13 U/L (15-37); Albumin 2.9 g/dL (3.4-5.0); Alkaline Phosphatase 74 U/L (46-116); Anion Gap 9.6 mmol/L (3-11); BUN 13 mg/dL (7-18); Bilirubin, Total 0.2 mg/dL (0.2-1.0); CO2 27.4 mmol/L (21.0-32.0); CREATININE 0.91 mg/dL (0.70-1.30); Calcium 9.4 mg/dL (8.5-10.1); Chloride 103 mmol/L (98-107); Glucose 94 mg/dL (70-100); Magnesium 1.4 mg/dL (1.8-2.4); Potassium 4.4 mmol/L (3.5-5.1); Sodium 140 mmol/L (136-145); Total Protein 7.1 g/dL (6.4-8.2)
[2018-11-25 08:59] LABS: White Blood Cell Count 1.45 k/cumm (4.4-10.8)
[2018-11-25 09:22] LABS: Diff Comment Diff Reviewed; RBC Morphology Normal
[2018-11-28] MEDS: Normal Saline Flush 10 ML SYR IVP (12:34)
[2018-11-28 13:00] LABS: Abs Immature Grans 0.01 k/cumm (0.0-0.09); Absolute Basophil Count 0.01 k/cumm (0.0-0.2); Absolute Eosinophil Count 0.03 k/cumm (0.0-0.7); Absolute Lymphocyte Count 0.23 k/cumm (1.2-3.4); Absolute Neutrophil Count 1.29 k/cumm (1.2-6.7); Basophils % 0.5; Eosinophils % 1.6; HCT 28.1 % (40.0-50.0); HGB 9.7 g/dL (13.5-17.5); Immature Grans % 0.5; Lymphocytes % 12.3; Mean Corp. HGB Concentration 34.5 g/dL (32.0-36.0); Mean Corpuscular Hemoglobin 32.4 pg (27.0-33.0); Mean Platelet Volume 8.7 fL (8.0-11.0); Neutrophils % 69.1; Platelet Count 205 x1000/uL (130-400); RBC 2.99 m/cumm (4.50-6.00); RBC Distribution Width 14.7 % (11.8-14.1)
[2018-11-28 13:11] LABS: ALT 19 U/L (12-78); AST 12 U/L (15-37); Albumin 2.9 g/dL (3.4-5.0); Alkaline Phosphatase 70 U/L (46-116); Anion Gap 7.7 mmol/L (3-11); BUN 18 mg/dL (7-18); Bilirubin, Total 0.1 mg/dL (0.2-1.0); CO2 29.3 mmol/L (21.0-32.0); CREATININE 0.88 mg/dL (0.70-1.30); Calcium 9.3 mg/dL (8.5-10.1); Chloride 104 mmol/L (98-107); Glucose 92 mg/dL (70-100); Magnesium 1.5 mg/dL (1.8-2.4); Potassium 4.3 mmol/L (3.5-5.1); Sodium 141 mmol/L (136-145); Total Protein 6.9 g/dL (6.4-8.2)
[2018-11-28 13:27] LABS: White Blood Cell Count 1.87 k/cumm (4.4-10.8)
[2018-11-28 13:28] LABS: Anisocytosis 1+; Diff Comment Diff Reviewed; Polychromasia Present
== END 2018-12-05 23:59 | disposition home or self-care (01) ==
LOC: INF 12:30
PROVIDERS: PCP Neuromusculoskeletal Medicine & OMM; Visit Provider Nurse Practitioner Adult Health
DX: C77.0 Secondary and unspecified malignant neoplasm of lymph nodes of head, face and neck (principal); Z45.2 Encounter for adjustment and management of vascular access device
CPT/HCPCS: 36591; 80053; 83735; 85025; J1885; J2250

== ENCOUNTER 2018-12-06 01:14 | Outpatient (RCR) | payer OTHER, SELFPAY ==
[2018-12-06] MEDS: Normal Saline Flush 10 ML SYR IVP (10:55)
[2018-12-06 11:21] LABS: Abs Immature Grans 0.04 k/cumm (0.0-0.09); Absolute Basophil Count 0.03 k/cumm (0.0-0.2); Absolute Eosinophil Count 0.02 k/cumm (0.0-0.7); Absolute Lymphocyte Count 0.42 k/cumm (1.2-3.4); Absolute Monocyte Count 0.44 k/cumm (0.11-0.7); Absolute Neutrophil Count 2.96 k/cumm (1.2-6.7); Basophils % 0.8; Eosinophils % 0.5; HCT 31.3 % (40.0-50.0); HGB 10.6 g/dL (13.5-17.5); Lymphocytes % 10.7; Mean Corp. HGB Concentration 33.9 g/dL (32.0-36.0); Mean Corpuscular Hemoglobin 32.3 pg (27.0-33.0); Mean Corpuscular Volume 95.4 fL (80-95); Mean Platelet Volume 8.5 fL (8.0-11.0); Monocytes % 11.3; Neutrophils % 75.7; Platelet Count 242 x1000/uL (130-400); RBC 3.28 m/cumm (4.50-6.00); RBC Distribution Width 16.5 % (11.8-14.1); White Blood Cell Count 3.91 k/cumm (4.4-10.8)
[2018-12-06 11:29] LABS: ALT 18 U/L (12-78); AST 12 U/L (15-37); Albumin 3.1 g/dL (3.4-5.0); Alkaline Phosphatase 75 U/L (46-116); Anion Gap 6.4 mmol/L (3-11); BUN 22 mg/dL (7-18); Bilirubin, Total 0.1 mg/dL (0.2-1.0); CO2 30.6 mmol/L (21.0-32.0); CREATININE 0.93 mg/dL (0.70-1.30); Calcium 9.1 mg/dL (8.5-10.1); Chloride 103 mmol/L (98-107); Glucose 100 mg/dL (70-100); Magnesium 1.5 mg/dL (1.8-2.4); Potassium 4.5 mmol/L (3.5-5.1); Sodium 140 mmol/L (136-145); Total Protein 7.1 g/dL (6.4-8.2)
== END 2019-01-05 23:59 | disposition home or self-care (01) ==
LOC: INF 01:14
PROVIDERS: PCP Neuromusculoskeletal Medicine & OMM; Visit Provider Nurse Practitioner Adult Health
DX: C77.0 Secondary and unspecified malignant neoplasm of lymph nodes of head, face and neck (principal); Z45.2 Encounter for adjustment and management of vascular access device
CPT/HCPCS: 36591; 80053; 83735; 85025

== ENCOUNTER 2021-02-07 07:59 | Outpatient (CLI) | payer OTHER, SELFPAY ==
[2021-02-07 08:23] LABS: Abs Immature Grans 0.02 10^3/uL (0.0-0.06); Absolute Basophil Count 0.07 10^3/uL (0.0-0.2); Absolute Eosinophil Count 0.27 10^3/uL (0.0-0.7); Absolute Monocyte Count 0.69 10^3/uL (0.1-0.8); Absolute Neutrophil Count 4.95 10^3/uL (1.2-6.7); Eosinophils % 3.9; HGB 14.5 g/dL (13.5-17.5); Immature Grans % 0.3; MCH 31.1 pg (27.0-33.0); MCHC 33.7 % (32.0-36.0); MCV 92.3 fL (80-95); MPV 8.3 fL (8.0-11.0); Neutrophils % 71.8; Nucleated RBC 0 %; Platelet Count 205 10^3/uL (130-400); RBC 4.66 10^6/uL (4.36-5.78); RDW 12.6 % (11.8-14.1); RDW-SD 42.8 fL
[2021-02-07 08:35] LABS: ALT 20 U/L (16-63); AST 13 U/L (15-37); Albumin 3.4 g/dL (3.4-5.0); Alkaline Phosphatase 110 U/L (46-116); Anion Gap 5.7 mmol/L (3-11); BUN 17 mg/dL (7-18); Bilirubin, Total 0.3 mg/dL (0.2-1.0); CO2 33.3 mmol/L (21.0-32.0); CREATININE 1.2 mg/dL (0.70-1.30); Chloride 104 mmol/L (98-107); Glucose 98 mg/dL (74-106); Magnesium 1.9 mg/dL (1.8-2.4); Sodium 143 mmol/L (136-145); Total Protein 7.7 g/dL (6.4-8.2)
== END 2021-02-07 08:00 | disposition home or self-care (01) ==
PROVIDERS: PCP Neuromusculoskeletal Medicine & OMM; Visit Provider Internal Medicine Medical Oncology
DX: C34.11 Malignant neoplasm of upper lobe, right bronchus or lung (principal)
CPT/HCPCS: 36415; 80053; 83735; 85025

== ENCOUNTER 2021-02-14 12:18 | Outpatient (CLI) | payer OTHER, SELFPAY ==
[2021-02-14 12:52] LABS: Abs Immature Grans 0.01 10^3/uL (0.0-0.06); Absolute Basophil Count 0.04 10^3/uL (0.0-0.2); Absolute Eosinophil Count 0.04 10^3/uL (0.0-0.7); Absolute Lymphocyte Count 0.41 10^3/uL (1.2-3.4); Absolute Monocyte Count 0.08 10^3/uL (0.1-0.8); Absolute Neutrophil Count 1.42 10^3/uL (1.2-6.7); HCT 40.1 % (40.0-50.0); HGB 13.9 g/dL (13.5-17.5); Immature Grans % 0.5; Lymphocytes % 20.5; MCH 30.9 pg (27.0-33.0); MCHC 34.7 % (32.0-36.0); MCV 89.1 fL (80-95); MPV 8.4 fL (8.0-11.0); Nucleated RBC 0 %; Platelet Count 176 10^3/uL (130-400); RDW 12.2 % (11.8-14.1); RDW-SD 39.8 fL
[2021-02-14 13:23] LABS: ALT 22 U/L (16-63); AST 17 U/L (15-37); Albumin 3.1 g/dL (3.4-5.0); Alkaline Phosphatase 81 U/L (46-116); Anion Gap 12.1 mmol/L (3-11); BUN 27 mg/dL (7-18); Bilirubin, Total 0.7 mg/dL (0.2-1.0); CO2 24.9 mmol/L (21.0-32.0); CREATININE 1.1 mg/dL (0.70-1.30); Calcium 8.8 mg/dL (8.5-10.1); Chloride 99 mmol/L (98-107); Glucose 129 mg/dL (74-106); Magnesium 1.7 mg/dL (1.8-2.4); Sodium 136 mmol/L (136-145); Total Protein 7.4 g/dL (6.4-8.2)
== END 2021-02-14 12:19 | disposition home or self-care (01) ==
LOC: LBO 12:19
PROVIDERS: PCP Neuromusculoskeletal Medicine & OMM; Visit Provider Internal Medicine Medical Oncology
DX: C34.11 Malignant neoplasm of upper lobe, right bronchus or lung (principal)
CPT/HCPCS: 36415; 80053; 83735; 85025

== ENCOUNTER 2021-02-28 07:30 | Outpatient (CLI) | payer OTHER, SELFPAY ==
[2021-02-28 08:02] LABS: Abs Immature Grans 0.03 10^3/uL (0.0-0.06); Absolute Basophil Count 0.05 10^3/uL (0.0-0.2); Absolute Lymphocyte Count 0.47 10^3/uL (1.2-3.4); Absolute Monocyte Count 0.61 10^3/uL (0.1-0.8); Absolute Neutrophil Count 3.02 10^3/uL (1.2-6.7); Basophils % 1.2; HGB 11.8 g/dL (13.5-17.5); Immature Grans % 0.7; Lymphocytes % 11.2; MCH 31.4 pg (27.0-33.0); MCHC 33.7 % (32.0-36.0); MCV 93.1 fL (80-95); Monocytes % 14.6; Neutrophils % 72.3; Nucleated RBC 0 %; Platelet Count 290 10^3/uL (130-400); RBC 3.76 10^6/uL (4.36-5.78); RDW 13.3 % (11.8-14.1); RDW-SD 44.1 fL; WBC 4.18 10^3/uL (4.4-10.8)
[2021-02-28 08:07] LABS: ALT 18 U/L (16-63); AST 10 U/L (15-37); Albumin 3.1 g/dL (3.4-5.0); Alkaline Phosphatase 84 U/L (46-116); Anion Gap 6.5 mmol/L (3-11); BUN 13 mg/dL (7-18); Bilirubin, Total 0.3 mg/dL (0.2-1.0); CO2 31.5 mmol/L (21.0-32.0); CREATININE 1.1 mg/dL (0.70-1.30); Calcium 9.3 mg/dL (8.5-10.1); Chloride 102 mmol/L (98-107); Glucose 100 mg/dL (74-106); Magnesium 1.9 mg/dL (1.8-2.4); Potassium 4.6 mmol/L (3.5-5.1); Sodium 140 mmol/L (136-145); Total Protein 7.2 g/dL (6.4-8.2)
== END 2021-02-28 07:31 | disposition home or self-care (01) ==
LOC: LBO 07:31
PROVIDERS: PCP Neuromusculoskeletal Medicine & OMM; Visit Provider Internal Medicine Medical Oncology
DX: C34.11 Malignant neoplasm of upper lobe, right bronchus or lung (principal)
CPT/HCPCS: 36415; 80053; 83735; 85025

== ENCOUNTER 2021-03-21 02:37 | Outpatient (CLI) | payer OTHER, SELFPAY ==
[2021-03-21 07:25] LABS: Abs Immature Grans 0.02 10^3/uL (0.0-0.06); Absolute Basophil Count 0.06 10^3/uL (0.0-0.2); Absolute Lymphocyte Count 0.53 10^3/uL (1.2-3.4); Absolute Monocyte Count 0.47 10^3/uL (0.1-0.8); Absolute Neutrophil Count 2.73 10^3/uL (1.2-6.7); Basophils % 1.6; HCT 33.2 % (40.0-50.0); HGB 11.1 g/dL (13.5-17.5); Immature Grans % 0.5; Lymphocytes % 13.9; MCH 31.3 pg (27.0-33.0); MCHC 33.4 % (32.0-36.0); MCV 93.5 fL (80-95); MPV 7.8 fL (8.0-11.0); Monocytes % 12.3; Neutrophils % 71.7; Nucleated RBC 0 %; Platelet Count 194 10^3/uL (130-400); RBC 3.55 10^6/uL (4.36-5.78); RDW-SD 47.5 fL; WBC 3.81 10^3/uL (4.4-10.8)
[2021-03-21 07:37] LABS: ALT 20 U/L (16-63); AST 16 U/L (15-37); Albumin 3.1 g/dL (3.4-5.0); Alkaline Phosphatase 88 U/L (46-116); BUN 14 mg/dL (7-18); Bilirubin, Total 0.4 mg/dL (0.2-1.0); CREATININE 1.4 mg/dL (0.70-1.30); Calcium 9.1 mg/dL (8.5-10.1); Chloride 105 mmol/L (98-107); Estimated GFR 51.52 (mL/min/1.73m2); Glucose 109 mg/dL (74-106); Magnesium 1.8 mg/dL (1.8-2.4); Potassium 4.9 mmol/L (3.5-5.1); Sodium 142 mmol/L (136-145); Total Protein 7.2 g/dL (6.4-8.2)
== END 2021-03-21 02:38 | disposition home or self-care (01) ==
LOC: LBO 02:37
PROVIDERS: PCP Neuromusculoskeletal Medicine & OMM; Visit Provider Internal Medicine Medical Oncology
DX: C34.11 Malignant neoplasm of upper lobe, right bronchus or lung (principal)
CPT/HCPCS: 36415; 80053; 83735; 85025

== ENCOUNTER 2021-04-13 07:33 | Outpatient (CLI) | payer OTHER, SELFPAY ==
[2021-04-13 07:45] LABS: Abs Immature Grans 0.01 10^3/uL (0.0-0.06); Absolute Basophil Count 0.05 10^3/uL (0.0-0.2); Absolute Monocyte Count 0.48 10^3/uL (0.1-0.8); Absolute Neutrophil Count 2.03 10^3/uL (1.2-6.7); Basophils % 1.6; HCT 31.9 % (40.0-50.0); HGB 10.7 g/dL (13.5-17.5); Immature Grans % 0.3; Lymphocytes % 16.3; MCH 30.7 pg (27.0-33.0); MCHC 33.5 % (32.0-36.0); MCV 91.7 fL (80-95); MPV 8.6 fL (8.0-11.0); Monocytes % 15.6; Neutrophils % 66.2; Nucleated RBC 0 %; Platelet Count 203 10^3/uL (130-400); RBC 3.48 10^6/uL (4.36-5.78); RDW 14.9 % (11.8-14.1); RDW-SD 49.5 fL; WBC 3.07 10^3/uL (4.4-10.8)
[2021-04-13 07:58] LABS: ALT 15 U/L (16-63); AST 5 U/L (15-37); Albumin 3.2 g/dL (3.4-5.0); Alkaline Phosphatase 77 U/L (46-116); Anion Gap 10.3 mmol/L (3-11); BUN 11 mg/dL (7-18); Bilirubin, Total 0.4 mg/dL (0.2-1.0); CO2 28.7 mmol/L (21.0-32.0); CREATININE 1.9 mg/dL (0.70-1.30); Calcium 9.6 mg/dL (8.5-10.1); Chloride 101 mmol/L (98-107); Estimated GFR 36.22 (mL/min/1.73m2); Glucose 115 mg/dL (74-106); Magnesium 1.6 mg/dL (1.8-2.4); Potassium 4.6 mmol/L (3.5-5.1); Sodium 140 mmol/L (136-145); Total Protein 7.2 g/dL (6.4-8.2)
== END 2021-04-13 07:34 | disposition home or self-care (01) ==
LOC: LBO 07:36
PROVIDERS: PCP Neuromusculoskeletal Medicine & OMM; Visit Provider Internal Medicine Medical Oncology
DX: C34.11 Malignant neoplasm of upper lobe, right bronchus or lung (principal)
CPT/HCPCS: 36415; 80053; 83735; 85025

== ENCOUNTER 2021-05-16 03:46 | Outpatient (CLI) | payer OTHER, SELFPAY ==
[2021-05-16 14:28] LABS: Abs Immature Grans 0.03 10^3/uL (0.0-0.06); Absolute Basophil Count 0.03 10^3/uL (0.0-0.2); Absolute Lymphocyte Count 0.39 10^3/uL (1.2-3.4); Absolute Monocyte Count 0.26 10^3/uL (0.1-0.8); Absolute Neutrophil Count 3.84 10^3/uL (1.2-6.7); Basophils % 0.7; HCT 26.6 % (40.0-50.0); HGB 8.6 g/dL (13.5-17.5); Immature Grans % 0.7; Lymphocytes % 8.6; MCH 30.8 pg (27.0-33.0); MCHC 32.3 % (32.0-36.0); MCV 95.3 fL (80-95); MPV 8.4 fL (8.0-11.0); Monocytes % 5.7; Neutrophils % 84.3; Nucleated RBC 0 %; Platelet Count 198 10^3/uL (130-400); RBC 2.79 10^6/uL (4.36-5.78); RDW 15.9 % (11.8-14.1); RDW-SD 55.4 fL; WBC 4.55 10^3/uL (4.4-10.8)
[2021-05-16 15:20] LABS: ALT 17 U/L (16-63); AST 19 U/L (15-37); Alkaline Phosphatase 74 U/L (46-116); Anion Gap 6.4 mmol/L (3-11); BUN 19 mg/dL (7-18); Bilirubin, Total 0.2 mg/dL (0.2-1.0); CO2 29.6 mmol/L (21.0-32.0); CREATININE 2.1 mg/dL (0.70-1.30); Calcium 8.7 mg/dL (8.5-10.1); Chloride 104 mmol/L (98-107); Estimated GFR 32.27 (mL/min/1.73m2); Glucose 129 mg/dL (74-106); Magnesium 1.5 mg/dL (1.8-2.4); Potassium 4.7 mmol/L (3.5-5.1); Sodium 140 mmol/L (136-145); Total Protein 6.5 g/dL (6.4-8.2)
== END 2021-05-16 03:47 | disposition home or self-care (01) ==
PROVIDERS: PCP Neuromusculoskeletal Medicine & OMM; Visit Provider Internal Medicine Medical Oncology
DX: C34.11 Malignant neoplasm of upper lobe, right bronchus or lung (principal)
CPT/HCPCS: 36415; 80053; 83735; 85025

== ENCOUNTER 2021-06-15 04:06 | Outpatient (CLI) | payer OTHER, SELFPAY ==
[2021-06-15 09:52] LABS: Abs Immature Grans 0.01 10^3/uL (0.0-0.06); Absolute Basophil Count 0.03 10^3/uL (0.0-0.2); Absolute Lymphocyte Count 0.76 10^3/uL (1.2-3.4); Absolute Monocyte Count 0.43 10^3/uL (0.1-0.8); Absolute Neutrophil Count 3.85 10^3/uL (1.2-6.7); Basophils % 0.6; HCT 27.9 % (40.0-50.0); Immature Grans % 0.2; MCH 31.9 pg (27.0-33.0); MCHC 32.3 % (32.0-36.0); MCV 98.9 fL (80-95); MPV 8.6 fL (8.0-11.0); Monocytes % 8.5; Neutrophils % 75.7; Nucleated RBC 0 %; Platelet Count 207 10^3/uL (130-400); RBC 2.82 10^6/uL (4.36-5.78); RDW 14.6 % (11.8-14.1); RDW-SD 53.1 fL; WBC 5.08 10^3/uL (4.4-10.8)
[2021-06-15 10:00] LABS: Magnesium 1.8 mg/dL (1.8-2.4)
[2021-06-15 10:04] LABS: ALT 14 U/L (16-63); AST 12 U/L (15-37); Albumin 3.4 g/dL (3.4-5.0); Alkaline Phosphatase 90 U/L (46-116); Anion Gap 9.7 mmol/L (3-11); BUN 17 mg/dL (7-18); Bilirubin, Total 0.3 mg/dL (0.2-1.0); CO2 27.3 mmol/L (21.0-32.0); CREATININE 1.9 mg/dL (0.70-1.30); Calcium 9.5 mg/dL (8.5-10.1); Chloride 103 mmol/L (98-107); Estimated GFR 36.22 (mL/min/1.73m2); Glucose 84 mg/dL (74-106); Potassium 3.8 mmol/L (3.5-5.1); Sodium 140 mmol/L (136-145); Total Protein 7.6 g/dL (6.4-8.2)
== END 2021-06-15 04:07 | disposition home or self-care (01) ==
LOC: LBO 04:06
PROVIDERS: PCP Neuromusculoskeletal Medicine & OMM; Visit Provider Internal Medicine Medical Oncology
DX: C34.11 Malignant neoplasm of upper lobe, right bronchus or lung (principal)
CPT/HCPCS: 36415; 80053; 83735; 85025

== ENCOUNTER 2021-08-15 04:13 | Outpatient (CLI) | payer OTHER, SELFPAY ==
[2021-08-15 12:23] LABS: Abs Immature Grans 0.02 10^3/uL (0.0-0.06); Absolute Basophil Count 0.08 10^3/uL (0.0-0.2); Absolute Eosinophil Count 0.08 10^3/uL (0.0-0.7); Absolute Lymphocyte Count 0.68 10^3/uL (1.2-3.4); Absolute Monocyte Count 0.42 10^3/uL (0.1-0.8); Absolute Neutrophil Count 3.97 10^3/uL (1.2-6.7); Basophils % 1.5; Eosinophils % 1.5; HCT 34.2 % (40.0-50.0); HGB 11.1 g/dL (13.5-17.5); Immature Grans % 0.4; MCH 31.8 pg (27.0-33.0); MCHC 32.5 % (32.0-36.0); MPV 8.5 fL (8.0-11.0); Neutrophils % 75.6; Nucleated RBC 0 %; Platelet Count 182 10^3/uL (130-400); RBC 3.49 10^6/uL (4.36-5.78); RDW 13.6 % (11.8-14.1); WBC 5.25 10^3/uL (4.4-10.8)
[2021-08-15 12:35] LABS: ALT 16 U/L (16-63); AST 15 U/L (15-37); Albumin 3.5 g/dL (3.4-5.0); Alkaline Phosphatase 66 U/L (46-116); Anion Gap 4.9 mmol/L (3-11); BUN 24 mg/dL (7-18); Bilirubin, Total 0.3 mg/dL (0.2-1.0); CO2 31.1 mmol/L (21.0-32.0); CREATININE 1.9 mg/dL (0.70-1.30); Calcium 8.8 mg/dL (8.5-10.1); Chloride 104 mmol/L (98-107); Estimated GFR 36.22 (mL/min/1.73m2); Glucose 103 mg/dL (74-106); Magnesium 1.9 mg/dL (1.8-2.4); Potassium 4.6 mmol/L (3.5-5.1); Sodium 140 mmol/L (136-145); Total Protein 7.4 g/dL (6.4-8.2)
== END 2021-08-15 04:14 | disposition home or self-care (01) ==
LOC: LBO 04:13
PROVIDERS: PCP Neuromusculoskeletal Medicine & OMM; Visit Provider Internal Medicine Medical Oncology
DX: C34.11 Malignant neoplasm of upper lobe, right bronchus or lung (principal)
CPT/HCPCS: 36415; 80053; 83735; 85025

== ENCOUNTER 2021-12-07 01:42 | Outpatient (CLI) | payer OTHER, SELFPAY | END 2021-12-07 01:43 | disposition home or self-care (01) | LOC: LBO 01:42 | PROVIDERS: PCP Neuromusculoskeletal Medicine & OMM; Visit Provider Preventive Medicine Undersea and Hyperbaric Medicine ==

== ENCOUNTER 2022-09-25 02:47 | Outpatient (RCR) | payer MEDICARE, SELFPAY ==
[2022-09-25] MEDS: Normal Saline Flush 10 ML SYR IVP (09:47)
[2022-09-25 09:51] LABS: Abs Immature Grans 0.33 10^3/uL (0.0-0.06); HCT 27.6 % (40.0-50.0); HGB 8.8 g/dL (13.5-17.5); MCH 27.2 pg (27.0-33.0); MCHC 31.9 % (32.0-36.0); MCV 85 fL (80-95); MPV 9.1 fL (8.0-11.0); Platelet Count 393 10^3/uL (130-400); RBC 3.24 10^6/uL (4.36-5.78); RDW 14.7 % (11.8-14.1); RDW-SD 45.9 fL; WBC 23.59 10^3/uL (4.4-10.8)
[2022-09-25 10:07] LABS: Absolute Lymphocyte Count 1.18 10^3/uL (1.2-3.4); Absolute Monocyte Count 0.47 10^3/uL (0.1-0.8); Absolute Neutrophil Count 21.94 10^3/uL (1.2-6.7); Atypical Lymphocytes % 0; Bands % 0; Diff Comment Manual Differential; RBC Morphology Normal
[2022-09-25 10:12] LABS: ALT 29 U/L (16-63); AST 38 U/L (15-37); Albumin 2.3 g/dL (3.4-5.0); Alkaline Phosphatase 230 U/L (46-116); Anion Gap 12.2 mmol/L (3-11); BUN 23 mg/dL (7-18); Bilirubin, Total 0.6 mg/dL (0.2-1.0); CO2 26.8 mmol/L (21.0-32.0); CREATININE 1.8 mg/dL (0.70-1.30); Chloride 93 mmol/L (98-107); Estimated GFR 42.03 (mL/min/1.73m2); Glucose 129 mg/dL (74-106); Potassium 3.7 mmol/L (3.5-5.1); Sodium 132 mmol/L (136-145); Total Protein 7.3 g/dL (6.4-8.2)
== END 2022-10-07 23:59 | disposition home or self-care (01) ==
LOC: INF 02:47
PROVIDERS: PCP Neuromusculoskeletal Medicine & OMM; Visit Provider Internal Medicine Medical Oncology
DX: C34.11 Malignant neoplasm of upper lobe, right bronchus or lung (principal); Z45.2 Encounter for adjustment and management of vascular access device
CPT/HCPCS: 36591; 80053; 85025